=== PATIENT | male | born 1980 | race Caucasian/White ===

== ENCOUNTER 2017-08-17 09:07 | Day surgery (SDC) | payer OTHER ==
[2017-08-17] MEDS ORDERED: ACETAMINOPHEN 1,000 MG/100 ML 100 ML IV ONE ×2 (09:40→16:00)
[2017-08-17] MEDS ORDERED: cefTRIAXone 2 GM VIAL ONE (09:41)
[2017-08-17] MEDS ORDERED: LACTATED RINGERS 1,000 ML IV ONE ×3 (09:52→17:21)
[2017-08-17] MEDS ORDERED: MIDAZOLAM 2 MG/2 ML VIAL ONE (12:14)
[2017-08-17] MEDS ORDERED: BUPIVACAINE 0.25% PF 30 ML VIAL SUBQ ONE (13:46)
[2017-08-17] MEDS ORDERED: EPINEPHrine 1 MG/ML AMP IR ONE (13:47)
[2017-08-17] MEDS ORDERED: ROCURONIUM 50 MG/5 ML VIAL IVP ONE (16:00)
[2017-08-17] MEDS ORDERED: ONDANSETRON 4 MG/2 ML VIAL IVP ONE (16:00)
[2017-08-17] MEDS ORDERED: PROPOFOL 200 MG/20 ML VIAL IVP ONE (16:00)
[2017-08-17] MEDS ORDERED: LIDOCAINE-MPF 2% 5 ML VIAL IM ONE (16:00)
[2017-08-17] MEDS ORDERED: HYDROmorphone 1 MG/ML AMP IVP ONE (16:00)
[2017-08-17] MEDS ORDERED: KETOROLAC 30 MG/ML VIAL IVP ONE (16:00)
[2017-08-17] MEDS ORDERED: DEXAMETHASONE 4 MG/ML VIAL IVP ONE (16:00)
[2017-08-17] MEDS ORDERED: fentaNYL 100 MCG/2 ML VIAL IVP ONE (16:00)
[2017-08-17] MEDS ORDERED: cefTRIAXone 2 GM VIAL IV ONE (16:00)
[2017-08-17] MEDS ORDERED: MIDAZOLAM 2 MG/2 ML VIAL IVP ONE (16:00)
[2017-08-17] MEDS: HYDROmorphone 1 MG/ML AMP ONE ×4 (17:27→18:03)
[2017-08-17] MEDS ORDERED: oxyCODONE 5 MG TABLET ONE (18:12)
[2017-08-17] MEDS ORDERED: HYDROmorphone 1 MG/ML AMP ONE (18:37)
[2017-08-17 18:57] VITALS: BP 151/96
--- NOTE | 2017-08-18 08:48 | OPERATIVE REPORT ---
DATE OF SURGERY: 08/17/2017 00:00:00 PLEASE REVIEW BLANK NEAR BOTTOM PREOPERATIVE DIAGNOSES 1. Right shoulder instability. 2. Right shoulder labral tear. 3. Right shoulder biceps long head tendinitis. POSTOPERATIVE DIAGNOSIS 1. Right shoulder instability. 2. Right shoulder labral tear. 3. Right shoulder biceps long head tendinitis. PROCEDURES PERFORMED 1. Right shoulder 180-degree labral tear repair, CPT 14370. 2. Right shoulder mini open subpectoral biceps tenodesis, CPT 27169. SURGEON: Nigel Swenson MD. DIRECTOR OF CATERING SALES: Dyan Clemente MD. POSTOPERATIVE PLAN: Same day surgery discharge, dressings intact for 4 days. Pendulum exercises now u ntil followup, limited range of motion until 6 weeks. No active biceps motion until 6 weeks, progress fred stretching and strengthening at that point. 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 Since that time he has h ad pain and instability. He denies any anabella dislocations requiring reduction. He also has anterior s houlder pain consistent with biceps tendinopathy. His physical exam findings and imaging were consist ent with an anterior, inferior, and posterior labral tear, as well as a SLAP tear. He had completed [facility] courses of physical therapy without pain and instability relief. His scapula had good motion. The risks, benefits, and alternatives of surgery were discussed. Risks include pain, bleeding, infect ion, damage to nearby structures, lack of symptom relief, implant complications, need for further angie geries, anesthesia complications to include and up to that. He signed a written consent form. EXAMINATION UNDER ANESTHESIA FINDINGS: Full range of motion, posterior load and shift 2+, inferior andino lcus 1+, anterior load and shift 2+. SURGICAL FINDINGS: The biceps tendon was thickened within the groove. There were no anabella tears. A ty pe 2 SLAP tear. Rotator cuff tendons were intact. Subscap was intact. No HAGL lesion. The anterior in ferior labrum was torn with evidence of a small amount of bony involvement at some point. There is al so a small GLAD lesion at the 7-o'clock location. The anterior labrum was torn, the inferior labrum w as torn, and the posterior labrum was torn. IMPLANTS: The knotless SutureTak x6. They were 3 mm x 12.7 mm by Arthrex. Biceps button by Arthrex. ANESTHESIA: General. ANTIBIOTICS: 2 grams of ceftriaxone. ESTIMATED BLOOD LOSS: 25 mL. URINE OUTPUT: Not recorded. INTRAVENOUS FLUIDS: 2 L. TOURNIQUET: Not used. SPECIMENS: None. COMPLICATIONS: None. DISPOSITION: Stable to PACU. DEEP VENOUS THROMBOSIS PROPHYLAXIS: SCD while in the hospital. Early and frequent ambulation. PROCEDURE IN DETAIL: The patient was met in the preoperative holding area on the day of the procedure , operative extremity was signed, consent was verified. He desired to proceed. He was brought to the operating room and surrendered to anesthesia. Once general anesthesia had been obtained, he was place d in the lateral position and all bony prominences were well padded. An axillary roll was placed. Exa mination under anesthesia was performed with the findings as above. He was then prepped and draped in the standard sterile fashion. A surgical time-out was held where we confirmed the patient's identity , procedure, laterality, ALLERGIES, images. All were in agreement and we proceeded. A standard diagno stic shoulder arthroscopy was performed utilizing a posterior, anterior superior, and a mid glenoid p ortal. The findings of the diagnostic arthroscopy as explained above. I then used a sucker shaver to debride the SLAP lesion, as well as any frayed portions of the circumferential labral tear. A biter w as then brought into the joint and the biceps tendon was taken off of the labrum. A balance suspensio n was placed on the shoulder prior to starting the shoulder arthroscopy. I then proceeded to elevate the labrum off of the glenoid. I did this utilizing 15-degree and 45-degr ee elevators from the anterior, superior, mid glenoid, and posterior portals. I elevated 180 degrees from 9 o'clock posteriorly to 3 o'clock anteriorly. A pineapple rasp was then brought in and the billy oid was abraded to a bleeding bed of bone. The fluid was stopped and the entire labrum was seen to fr eely elevate on to the glenoid. Satisfied with my preparation of the labrum, we then proceeded with martina correa 6-o'clock anchor. A 7-o'clock percutaneous portal was placed utilizing the Arthrex percutaneous ki t. The spinal needle was first placed and we assured we could get a good angle on our 6-o'clock ancho r. The nitinol wire came over that. A small kristine was made in the skin. The capsule was dilated and th e drill guide was placed. I then placed a SutureTak at the 6-o'clock position. With a knotless technique, a capsulorrhaphy was performed with a 45 degree suture lasso and the tissu e was reduced to the glenoid. I then proceeded posteriorly, placing a suture at the 7:30-position. In the process of passing the suture, it became abraded, and the knotless SutureTak would not function appropriately. I therefore placed a new anchor at the 7-o'clock position, performed a capsulorrhaphy, and this anchor worked well and reduced the tissue. Satisfied with this, I placed an additional anch or at the 8:30-position and reduced the tissue nicely. This brought a significant capsulorrhaphy and decreased the capsule volume. I then proceeded anteriorly and through the mid glenoid portal site moises travis an anchor at the 5-o'clock position. In the process of shuttling those sutures, the SutureTak mal functioned and became unloaded. I then decided to come up the face slightly to the 4:30-position to p lace a PushLock. In the process of drilling for the PushLock, we fell into the old anchor site. I the n decided that a different angle would be advantageous and so through the 7-o'clock percutaneous port al, I attempted to drill near that same location, slightly more on the face, but that also fell into the prior tunnel location site and I anticipated that it would not hold an anchor well. I then came u p the clock slightly further into the mid glenoid portal, placed an anchor at the 4-o'clock position. I performed an adequate capsulorrhaphy, grabbing inferior tissue to reduce it from the 6-o'clock pos ition all the way to the 4-o'clock position. I tightened it and it did reduce the tissue nicely. I th en placed an additional anchor at the 3-o'clock position, which worked out well. Using a probe, I ens ured adequate tissue tension and adequate reduction of the labrum on the glenoid throughout this proc ess prior to cutting any of the sutures. Satisfied with the labral repair, I took final images showin g the humeral head to be centered on the glenoid. Any loose labral tissue was also debrided. We then proceeded to the biceps tenodesis. The arm was taken out of balance suspension and externally rotated to present the course of the biceps. A 3 cm incision was made centered over the pec major te ndon. Blunt dissection was carried down through the fascial layer and finger dissection was brought d own to the intertubercular groove. The biceps tendon was delivered from the wound using finger dissec tion. A large Hohmann was then placed just lateral to the intertubercular groove into the substance o f the pectoralis major tendon insertion, and this was used for retraction to allow us to see proximal ly. Satisfied with this visualization, the guide pin for the biceps button was brought in through the tis paul protector. High in the intertubercular groove, a pin was placed, ensuring intramedullary location . It was then removed and turned around for the blunt end to . This marked our spot quite nicely. The biceps tendon was then sutured from the musculotendinous junction to 2 cm proximal to that. Excess tendinous tissue was then cut. Two sutures were then placed through the button in op posite directions. The guide pin was then removed, and the button was placed intramedullary. It was r eleased and flipped and found to be adequately fixed. I then, using a free needle, placed one suture and sutured through the end of the tendon. The tendon was then reduced to the intertubercular groove and 8 reverse half hitches, alternating posts, were tied on top of this. The tension of the long head of the biceps tendon was quite nice in this location. I irrigated the wound copiously. We then closed all wounds with 2-0 Vicryl for the dermal layer and running interrupted Monocryl in th e subcu. Steri-Strips were applied, 30 mL of 0.25% Marcaine plain were instilled about the portal sit es. Sterile dressing was applied, and a sling was placed. The patient was awakened and transferred to the recovery room without issue. JOB #: [id number] EXT JOB #:[id number]
== END 2017-08-17 09:08 | disposition home or self-care (01) ==
LOC: SDS 09:07
PROVIDERS: ATTEND Orthopaedic Surgery
PROC: 0LS30ZZ Reposition Right Upper Arm Tendon, Open Approach (ICD-10-PCS; 2017-08-17)
PROC: 0RQJ4ZZ Repair Right Shoulder Joint, Percutaneous Endoscopic Approach (ICD-10-PCS; principal; 2017-08-17 11:00)
DX: M25.311 Other instability, right shoulder (principal); S43.491A Other sprain of right shoulder joint, initial encounter; M75.21 Bicipital tendinitis, right shoulder; X50.0XXA Overexertion from strenuous movement or load, initial encounter
CPT/HCPCS: 23430; 29806; A9270; C1713; J0131; J1170; J7120